=== PATIENT | female | born 1955 | race Caucasian/White ===

== ENCOUNTER 2017-04-11 14:51 | Emergency (ER) | payer OTHER ==
[~2017-04-11] VITALS: Ht 152.4 cm; Wt 63.5 kg
--- NOTE | 2017-04-11 15:38 | ED CARDIAC/CP/PALPITATIONS ---
History of Present Illness General Chief Complaint: Chest Pain Stated Complaint: SENT IN BY WALK IN FOR CHEST PAIN, SOB Source: patient Exam Limitations: no limitations Vital Signs & Intake/Output Vital Signs & Intake/Output Vital Signs Date Time Temp Pulse Resp B/P B/P Pulse O2 O2 Flow FiO2 Mean Ox Delivery Rate 04/11 1700 97.1 64 18 106/66 100 04/11 1504 96.8 70 18 141/77 99 Room Air Allergies Coded Allergies: No Known Allergies (04/11/17) Triage Note: PT TO ED FOR INTERMITTENT CHEST PAIN RADIATING INTO HER BACK WITH ASSOCIATED SOB X SEVERAL DAYS, PT REPORTING SIG PERSONAL STRESS LATELY. UNABLE TO IDENTIFY IF ANYTHING MAKES PAIN BETTER OR WORSE. Triage Nurses Notes Reviewed? yes Onset: Gradual Duration: week(s): Timing: recent history Quality/Severity: moderate Location: substernal Radiation: arms, back Activities at Onset: emotional stress Prior Chest Pain/Card Workup: no prior chest pain HPI: 61-year-old female with history of hypertension presents emergency department complaining of intermittent substernal chest pain 1 week. Chest pain described as substernal, aching, radiating to arms and back, lasting minutes intermittently. Patient is unaware of modifying factors. Patient has associated dyspnea with chest pain. Patient states that her just made the decision to begin hospice and she has been dealing with significant emotional stress, she is his primary caregiver. Patient has no prior chest pain history. She has seen a log cutter many years ago and had a stress test which was within normal limits. She denies recent fevers, chills, abdominal pain, nausea, vomiting, presyncope, syncope. (Katelin Castillo) Past History Travel History Traveled to [place] past 21 day No Medical History Any Pertinent Medical History? see below for history Neurological: NONE EENT: NONE Cardiovascular: hypertension, hyperlipidemia Respiratory: NONE Gastrointestinal: NONE Hepatic: NONE Renal: NONE Musculoskeletal: osteoporosis Psychiatric: NONE Endocrine: NONE Blood Disorders: NONE Cancer(s): NONE Surgical History Surgical History: non-contributory Psychosocial History What is your primary language Bruneian Tobacco Use: Never used ETOH Use: denies use Illicit Drug Use: denies illicit drug use Family History Hx Contributory? No (Katelin Castillo) Review of Systems Review of Systems Constitutional: Reports: no symptoms. EENTM: Reports: no symptoms. Respiratory: Reports: see HPI. Cardiovascular: Reports: see HPI. GI: Reports: no symptoms. Genitourinary: Reports: no symptoms. Musculoskeletal: Reports: no symptoms. Skin: Reports: no symptoms. Neurological/Psychological: Reports: see HPI. Hematologic/Endocrine: Reports: no symptoms. Immunologic/Allergic: Reports: no symptoms. All Other Systems: Reviewed and Negative (Malu COOPER,Katelin Mixon) Physical Exam Physical Exam General Appearance: well developed/nourished, no apparent distress, alert, awake Head: atraumatic, normal appearance Eyes: Bilateral: normal appearance. Ears, Nose, Throat: hearing grossly normal Neck: normal inspection, supple, full range of motion Respiratory: normal breath sounds, chest non-tender, no respiratory distress, lungs clear Cardiovascular: regular rate/rhythm Peripheral Pulses: 2+ radial (R), 2+ radial (L) Gastrointestinal: normal bowel sounds, soft, non-tender, no organomegaly Back: normal inspection, normal range of motion Extremities: normal inspection, normal range of motion, no edema Neurologic/Psych: awake, alert, oriented x 3 Skin: intact, normal color, warm/dry Core Measures ACS in differential dx? Yes CVA/TIA Diagnosis No Sepsis Present: No Sepsis Focused Exam Completed? No (Katelin Castillo) Progress Differential Diagnosis: AMI, aortic dissection, CHF/pulm edema, costochondritis, hyperventilation, musculoskeletal pain, myocarditis, pericarditis, pneumonia, pneumothorax, PSVT, pulmonary embolism, unstable angina, V-fib/V-Tach, WPW syndrome Plan of Care: Orders Procedure Date/time Status TROPONIN LEVEL 04/11 1757 Active EKG 04/11 1757 Active D-DIMER 04/11 1549 Complete TROPONIN LEVEL 04/11 1536 Complete COMPREHENSIVE METABOLIC PANEL 04/11 1536 Complete CBC WITHOUT DIFFERENTIAL 04/11 1536 Complete EKG 04/11 1453 Active Laboratory Tests 04/11/17 1844: Troponin I Pending 04/11/17 1621: Anion Gap 17 H, Estimated GFR > 60, BUN/Creatinine Ratio 25.6 H, Glucose 92, Calcium 10.1, Total Bilirubin 0.2, AST 21, ALT 32, Alkaline Phosphatase 72, Troponin I < 0.01, Total Protein 7.7, Albumin 4.8, Globulin 2.9, Albumin/ Globulin Ratio 1.7, D-Dimer High Sensitivty < 200, CBC w Diff NO MAN DIFF REQ, RBC 4.92, MCV 86.0, MCH 28.5, MCHC 33.1, RDW 12.9, MPV 7.9, Gran % 60.2, Lymphocytes % 31.2, Monocytes % 6.8, Eosinophils % 1.4, Basophils % 0.4, Absolute Granulocytes 6.4, Absolute Lymphocytes 3.3, Absolute Monocytes 0.7 H, Absolute Eosinophils 0.2, Absolute Basophils 0 EKG is in sinus rhythm, troponin negative. Patient age greater than 50, she has not perc negative. D-Dimer is negative, based on PE low suspicion for pulmonary embolism at this time. Chest x-ray without acute abnormality. Repeat EKG unchanged, second troponin negative. Patient's intermittent chest pain for the past week may be related to emotional stress given her current situation with her and hospice. Patient will follow-up with the log cutter for further evaluation. Patient ready to go home at this time. She is in no acute distress, vital signs are within normal limits. The patient agrees with this plan. The patient was discussed with Dr. Barriga who agrees with this plan. Diagnostic Imaging: Viewed by Me: Radiology Read. Discussed w/RAD: Radiology Read. CXR Impression: PATIENT: TYREE AYALA PRESENT AGE: 61 PATIENT ACCOUNT NO: [id number] : 53 LOCATION: [facility] ORDERING PHYSICIAN: Katelin COOPER SERVICE DATE: 04/11/17 EXAM TYPE: RAD - XRY-CHEST XRAY, TWO VIEWS EXAMINATION: XR CHEST CLINICAL INFORMATION: Chest pain and dyspnea COMPARISON: None TECHNIQUE: 2 views of the chest were obtained. FINDINGS : The cardiac and mediastinal contours are normal. The lungs are clear. There is no pleural effusion or pneumothorax. There are degenerative changes of the spine. IMPRESSION: Unremarkable examination. DICTATED BY: Nita Watson MD DATE/TIME DICTATED:04/11/171615 SENIOR SOFTWARE MANAGER:SARITA DATE/TIME TRANSCRIBED:04/11/171615 CONFIDENTIAL, DO NOT COPY WITHOUT APPROPRIATE AUTHORIZATION. <Electronically signed in Other Vendor System> SIGNED BY: Nita Watson MD 04/11/17 6850 Initial ED EKG: sinus rhythm @84bpm, nonspecific ST changes Repeat EKG: unchanged (Katelin Castillo) Departure Departure Disposition: HOME OR SELF CARE Condition: Stable Clinical Impression Primary Impression: Chest pain Qualifiers: Chest pain type: unspecified Qualified Code: R07.9 - Chest pain, unspecified Secondary Impressions: Dyspnea Qualifiers: Dyspnea type: unspecified Qualified Code: R06.00 - Dyspnea, unspecified Referrals: Kamlesh Lam MD (PCP/Family) Additional Instructions: You were given a referral for a log cutter to follow-up with regarding her chest pain. Return to the emergency Department with any worsening symptoms or other concerns. Please note that there might be incidental findings in your evaluation that are unrelated to the current emergency department visit. Please notify your primary care doctor about this emergency department visit in order to obtain and review all of the testing performed so that these incidental findings can be monitored as needed. If you had an x-ray performed, please understand that some fractures may not be seen on the initial set of x-rays. If your symptoms persist you might need a repeat set of x-rays to check for such a fracture. If you had a laceration evaluated, please understand that foreign bodies such as glass or wood may not be visible to the naked eye or on plain x-rays. If the wound becomes red, swollen, increasingly more painful or if there is any drainage from the wound, please have it reevaluated by a physician for the possibility of a retained foreign body. If you're unable to follow up as outlined in the discharge instructions please return to the emergency department. Thank you for choosing the [facility] Emergency Department for your care. It was a pleasure to serve you today. Departure Forms: Customer Survey General Discharge Information (Katelin Castillo) PA/CALL CENTER AGENT Co-Sign Statement Statement: ED Attending supervision documentation- x I saw and evaluated the patient. I have also reviewed all the pertinent lab results and diagnostic results. I agree with the findings and the plan of care as documented in the PA's/CALL CENTER AGENT's documentation. [] I have reviewed the ED Record and agree with the PA's/CALL CENTER AGENT's documentation. [] Additions or exceptions (if any) to the PAs/CALL CENTER AGENT's note and plan are summarized below: [] (Linus FELIX,Jc) Critical Care Note Critical Care Note Critical Care Time: non-applicable (Katelin Castillo)
--- NOTE | 2017-04-11 16:20 | RADIOLOGY REPORT ---
EXAMINATION: XR CHEST CLINICAL INFORMATION: Chest pain and dyspnea COMPARISON: None TECHNIQUE: 2 views of the chest were obtained. FINDINGS: The cardiac and mediastinal contours are normal. The lungs are clear. There is no pleural effusion or pneumothorax. There are degenerative changes of the spine. IMPRESSION: Unremarkable examination.
[2017-04-11 16:36] LABS: ABSOLUTE BASOPHIL COUNT 0 /CUMM (0.0-0.2); ABSOLUTE EOSINOPHIL COUNT 0.2 /CUMM (0.0-0.7); ABSOLUTE GRANULOCYTE CT 6.4 /CUMM (1.4-6.5); ABSOLUTE LYMPH COUNT 3.3 /CUMM (1.2-3.4); ABSOLUTE MONOCYTE COUNT 0.7 /CUMM (0.10-0.60); BASOPHIL % 0.4 % (0.0-2.0); EOSINOPHIL % 1.4 % (0-5); GRANULOCYTE % 60.2 % (42.2-75.2); HEMATOCRIT 42.3 % (37-47); MEAN CORPUSCULAR HGB 28.5 PG (27.0-31.0); MEAN CORPUSCULAR HGB CONC 33.1 G/DL (33.0-37.0); MEAN PLATELET VOLUME 7.9 FL (7.4-10.4); PLATELET COUNT 355 /CUMM (130-400); RBC DISTRIBUTION WIDTH 12.9 % (11.5-14.5); RED BLOOD CELL CT 4.92 /CUMM (4.20-5.40); WHITE BLOOD CELL COUNT 10.7 /CUMM (4.8-10.8)
[2017-04-11 19:40] VITALS: BP 152/78
== END 2017-04-11 19:43 ==
LOC: ERH 14:51
PROVIDERS: Physician Assistant
DX: R07.2 Precordial pain (principal); R06.00 Dyspnea, unspecified
CPT/HCPCS: 71046; 93005; 93010